=== PATIENT | male | born 1980 | race Caucasian/White ===

== ENCOUNTER 2017-07-21 21:57 | Emergency (ER) | payer OTHER, MEDICAID ==
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
--- NOTE | 2017-07-22 08:01 | CT ---
CT lumbar spine Technique: Multiple axial sections were obtained from above the T11-T12 disc through the majority of the sacrum. Reconstructed sagittal and coronal images were reviewed. Findings: Vertebral body heights and disc spaces are maintained. Vertebral bodies and posterior arches are intact with no fracture being seen. No bony central canal stenosis or bony neural foraminal stenosis is seen. No abnormal subluxation is seen. Impression: 1. Nothing acute is seen on CT study of the lumbar spine Diagnostic code #1 Agree with preliminary report issued by [facility] ([facility] preliminary report dictated on 07/22/17, 12:46 AM Central Time)
== END 2017-07-22 00:08 | disposition home or self-care (01) ==
LOC: JD.ED 21:57
DX: S39.012A Strain of muscle, fascia and tendon of lower back, initial encounter (principal); V63.5XXA Driver of heavy transport vehicle injured in collision with car, pick-up truck or van in traffic accident, initial encounter; Y92.411 Interstate highway as the place of occurrence of the external cause; Z98.890 Other specified postprocedural states; Z88.2 Allergy status to sulfonamides
CPT/HCPCS: 72131; 72131-26; 99283; 99284-25

== ENCOUNTER 2018-10-16 22:56 | Emergency (ER) | payer OTHER, MEDICAID ==
[2018-10-16] MEDS ORDERED: Metoclopramide 10 MG/2 ML SDV IVPUSH ONE (23:05)
[2018-10-16] MEDS ORDERED: HYDROmorphone 1 MG/ML Syringe IVPUSH ONE (23:05)
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
[2018-10-16] MEDS ORDERED: Iohexol 350 MG/ML 75 ML Bottle IVPUSH ONE (23:13)
[2018-10-16] MEDS ORDERED: Sodium Chloride 0.9% 1,000 ML IV SCH (23:15)
[2018-10-17] MEDS ORDERED: HYDROmorphone 1 MG/ML Syringe IVPUSH ONE ×2 (00:20→01:44)
[2018-10-17] MEDS ORDERED: Ondansetron 4 MG/2 ML SDV IVPUSH ONE (01:44)
--- NOTE | 2018-10-19 07:28 | CT ---
Head CT Technique: Multiple axial sections through the brain were obtained. Intravenous contrast was not utilized. Comparison: No prior intracranial imaging. Findings: Ventricles along with basal cisterns and sulci over the convexities are within normal limits for the patient's age. No abnormal parenchymal densities are seen. No evidence of intracranial hemorrhage. No midline shift or mass effect is seen. Bone window settings were reviewed which show no acute calvarial abnormality. Visualized sinuses show a normal mucosal thickening in the maxillary sinuses which is incidental. Impression: 1. Minimal mucosal thickening within the maxillary sinuses which is incidental. 2. No acute intracranial abnormality is identified. Diagnostic code #2 I agree with preliminary report from [facility], finalized on 10/17/18, 12:54 AM Central Time
--- NOTE | 2018-10-19 07:28 | CT ---
CT lumbar spine Technique: Multiple axial sections were obtained through the lumbar spine. Reconstructed coronal and sagittal images were reviewed. Findings: Vertebral body heights and disc spaces are maintained. Vertebral bodies and posterior arches are intact. No fracture is seen within the lumbar spine. No bony central or bony neural foraminal stenosis. Fractures are noted within the thoracic spine which will be described on thoracic spine study. Impression: 1. Thoracic spine fractures described on thoracic spine CT exam. 2. Nothing acute is seen on CT study of the lumbar spine. Diagnostic code #1 I agree with preliminary report from [facility], finalized on 10/17/18, 12:51 AM Central Time
--- NOTE | 2018-10-19 07:28 | CR ---
Right ankle: Four views of the right ankle were obtained. Comparison: No prior ankle exam. Ankle mortise is symmetric. Previous orthopedic intramedullary bushra defect is noted within the distal tibia. No acute fracture, dislocation or other bony abnormality is seen. Impression: 1. Old removed intramedullary bushra defect within the distal tibia. 2. Nothing acute is identified on right ankle exam. Diagnostic code #2
--- NOTE | 2018-10-19 07:28 | CT ---
CT thoracic spine Technique: Multiple axial sections were obtained through the thoracic spine. Reconstructed coronal and sagittal images were reviewed. Findings: Fracture is noted within the vertebral body of T10. This isolates the anterior and superior corner of the vertebral body. No extension into the posterior vertebral line is seen. Minimal superior endplate concavity is seen. No extension into the posterior elements is seen. Minimal endplate concavities are noted of T11 which likely represent additional vertebral body fractures. No extension into the posterior elements are seen. No abnormal subluxation is seen. No bony central or bony neural foraminal stenosis. Impression: 1. Vertebral body fractures of T10 and T11 without extension into the posterior vertebral line or into the posterior elements. No abnormal subluxation is seen. Diagnostic code #3 I agree with preliminary report from [facility], finalized on 10/17/18, 12:54 AM Central Time
--- NOTE | 2018-10-19 08:04 | CT ---
CT chest Technique: Multiple axial sections were obtained from above the lung apices inferiorly through the lung bases. Intravenous contrast was utilized. Reconstructed coronal and sagittal images were reviewed. Comparison: No prior chest imaging is available. Findings: Mediastinum and hilar regions show no adenopathy or mass. No pericardial thickening is seen. No axillary adenopathy is identified. Lungs show no acute parenchymal change. No pleural effusions are seen. No pneumothorax is identified. Fracture is noted within the vertebral body of T10 which will be described on thoracic spine study. Fracture is identified within the posterior left 11th rib. No additional rib fractures are identified. Impression: 1. Posterior left 11th rib fracture. 2. Fracture within the T10 vertebral body which will be described on CT thoracic spine study. 3. No additional abnormality is appreciated on CT study of the chest. Diagnostic code #3 CT abdomen and pelvis Technique: Multiple axial sections were obtained from above the dome of the diaphragm inferiorly through the pubic symphysis. Intravenous contrast was utilized. No oral contrast has been given. Comparison: No prior abdominal imaging. Findings: Liver shows fatty infiltration without focal abnormality. Spleen appears within normal limits. Adrenal glands show no nodule. Pancreas is normal. Gallbladder contains no calcified gallstones. Kidneys show symmetric contrast enhancement without hydronephrosis or mass. No abnormal calcifications are seen within the kidneys. Aorta shows no aneurysm. No retroperitoneal adenopathy or mesenteric abnormalities are seen. No pelvic mass or adenopathy is seen. No free fluid or inflammatory change is identified. Appendix is not definitely visualized. No bowel dilatation is seen. Delayed images show contrast within the distal ureters and within the bladder. No free fluid or inflammatory change is seen with abdomen or pelvis. Bone window settings were reviewed which show no discrete pelvic fracture or hip fracture. Impression: 1. Nothing acute is appreciated on CT study of the abdomen and pelvis. Diagnostic code #2 I agree with preliminary report from [facility], finalized on 10/17/18, 12:59 AM Central Time
--- NOTE | 2018-10-19 08:04 | CT ---
CT cervical spine Technique: Multiple axial sections were obtained from above C1 inferiorly to the top of T2. Reconstructed sagittal and coronal images were reviewed. Comparison: No prior cervical spine imaging. Findings: Vertebral body heights and disc spaces are maintained. No bony central or bony neural foraminal stenosis is seen. No abnormal subluxation or fracture is identified. Impression: 1. Nothing acute is appreciated on CT study of the cervical spine. Diagnostic code #1 I agree with preliminary report from [facility], finalized on 10/17/18, 12:56 AM Central Time
== END 2018-10-17 02:20 ==
LOC: JD.ED 22:56
DX: S22.32XA Fracture of one rib, left side, initial encounter for closed fracture (principal); S22.078A Other fracture of T9-T10 vertebra, initial encounter for closed fracture; S22.080A Wedge compression fracture of T11-T12 vertebra, initial encounter for closed fracture; S90.01XA Contusion of right ankle, initial encounter; Z79.899 Other long term (current) drug therapy; Z88.2 Allergy status to sulfonamides; V49.40XA Driver injured in collision with unspecified motor vehicles in traffic accident, initial encounter
CPT/HCPCS: 36415; 70450; 71260; 72125; 72128; 72131; 73610; 74177; 80053; 81001; 82150; 83615; 84484; 85007; 85027; 85610; 85730; 86850; 86900; 86901; 93005; 96361; 96374; 96375; 96376; 99285; G0390; G0480; J1170; J2405; J2765; J7040; Q9967; 93010

== ENCOUNTER 2020-01-14 05:08 | Emergency (ER) | payer MEDICAID ==
--- NOTE | 2020-01-14 05:44 | EDM.PDOC ---
ED HPI GENERAL MEDICAL PROBLEM - General Chief Complaint: Chest Pain Stated Complaint: CHEST PAIN Time Seen by Provider: 01/14/20 05:20 Source of Information: Reports: Patient History Limitations: Reports: No Limitations - History of Present Illness INITIAL COMMENTS - FREE TEXT/NARRATIVE: Mr. Mon is a very pleasant 39-year-old gentleman who now presents to the ED stating that he developed upper right anterior chest pain on 01/11/2020. Last evening the pain moved to his upper left chest, then got worse in intensity around midnight, while he was in bed, however, he was able to fall asleep. He then woke around 04:00 due to even worse pain, which now radiated to his left jaw area. He also noticed shooting left hand pain that would come and go. He describes his pain as burning and dull in character, and states that it is a pain, not a discomfort. He has not identified any modifiers. No associated nausea, dyspnea, or diaphoresis, although he does state that he has an internal sense that something is wrong. No prior similar symptoms. The patient states that he took 2 Tylenol yesterday, which did not seem to help. Here in the ED, the patient's initial BP is found to be mildly elevated at 153/98, otherwise, he is hemodynamically stable, afebrile, saturating 100% on room air. Other than his chest pain, the patient denies having a recent fever, chills, sore throat, ear pain, nasal or sinus congestion, cough, dyspnea, palpitations, nausea, vomiting, constipation, diarrhea, abdominal pain, urinary symptoms, recent weight gain or weight loss, recent bloody bowel movements or black bowel movements, recent joint aches, headaches, or rashes. The patient does not have a PCP. His Neurosurgeon is Dr. Brian Mon. Chest Pain Score (Numeric/FACES): 3 - Related Data Allergies Allergy/AdvReac Type Severity Reaction Status Date / Time sulfasalazine Allergy Severe Rash Verified 01/14/20 05:17 [From Azulfidine] Home Meds: Home Meds . [No Known Home Meds] 01/14/20 [History] Past Medical History Gastrointestinal History: Reports: Colon Polyp, GERD (untreated), Inflammatory Bowel Disease (diagnosed with ulcerative colitis in 2004, however, his symptoms resolved by 2016, calling into question the accuracy of the original diagnosis) Musculoskeletal History: Reports: Other (See Below) (Lumbar DDD) Endocrine/Metabolic History: Reports: Obesity/BMI 30+ - Past Surgical History HEENT Surgical History: Reports: Myringotomy w Tube(s) (bilateral, several, as a child), Oral Surgery (wisdom teeth extraction), Tonsillectomy GI Surgical History: Reports: Hernia, Inguinal (left) Neurological Surgical History: Reports: Lumbar Spine (L4-L5 microdiscectomy, ) Musculoskeletal Surgical History: Reports: ORIF (right tib/fib, with subsequent hardware removal) Other Musculoskeletal Surgeries/Procedures:: . Social & Family History - Family History Family Medical History: Noncontributory - Tobacco Use Smoking Status *Q: Never Smoker - Caffeine Use Caffeine Use: Reports: None - Alcohol Use Alcohol Use History: No - Recreational Drug Use Recreational Drug Use: No - Living Situation & Occupation Living situation: Reports: , with Spouse, with Family (5 kids) Occupation: Employed ([employer]) ED ROS GENERAL - Review of Systems Review Of Systems: Comprehensive ROS is negative, except as noted in HPI. ED EXAM, GENERAL - Physical Exam Exam: See Below Exam Limited By: No Limitations General Appearance: Alert, WD/WN, No Apparent Distress Eye Exam: Bilateral Eye: EOMI, Normal Inspection Ears: Normal External Exam, Hearing Grossly Normal Nose: Normal Inspection Throat/Mouth: Normal Inspection, Normal Lips, Normal Voice, No Airway Compromise Head: Atraumatic, Normocephalic Neck: Normal Inspection, Full Range of Motion Respiratory/Chest: No Respiratory Distress, Lungs Clear, Normal Breath Sounds, No Accessory Muscle Use, Other (Reproducible tenderness to palpation of the upper left chest. Pain is also reproduced in the same area when the patient presses his hands together with his arms outstretched in front of his chest.) Cardiovascular: Normal Peripheral Pulses, Regular Rate, Rhythm, No Edema, No Gallop, No JVD, No Murmur, No Rub Peripheral Pulses: 3+: Radial (L), Radial (R) GI/Abdominal: Normal Bowel Sounds, Soft, Non-Tender, No Organomegaly, No Disten tion, No Abnormal Bruit, No Mass (Male) Exam: Deferred Rectal (Males) Exam: Deferred Back Exam: Normal Inspection, Full Range of Motion, NT Extremities: Normal Inspection, Normal Range of Motion, No Pedal Edema, Normal Capillary Refill Neurological: Alert, Oriented, Normal Cognition, No Motor/Sensory Deficits Psychiatric: Normal Affect Skin Exam: Warm, Dry, Intact, Normal Color, No Rash EKG INTERPRETATION EKG Date: 01/14/20 Time: 05:15 Rhythm: NSR Rate (Beats/Min): 87 [place]: Normal P-Wave: Enlarged (LAE) QRS: Normal ST-T: Normal QT: Normal Comparison: No Change (10/16/2018) Course - Vital Signs Last Recorded V/S: Last Vital Signs Temp 35.8 C L 01/14/20 05:13 Pulse 84 01/14/20 06:46 Resp 16 01/14/20 06:46 BP 158/72 H 01/14/20 06:46 Pulse Ox 98 01/14/20 06:46 - Orders/Labs/Meds Orders: Active Orders 24 hr Category Date Time Status EKG 12 Lead [EKG Documentation Completion] [RC] URGENT Care 01/14/20 05:38 Active Chest 2V [CR] Stat Exams 01/14/20 05:37 Taken Labs: Laboratory Tests 01/14/20 01/14/20 01/14/20 Range/Units 05:20 05:20 05:20 WBC 8.48 (4.23-9.07) K/mm3 RBC 5.83 (4.63-6.08) M/mm3 Hgb 17.0 (13.7-17.5) gm/dl Hct 50.4 (40.1-51.0) % MCV 86.4 (79.0-92.2) fl MCH 29.2 (25.7-32.2) pg MCHC 33.7 (32.2-35.5) g/dl RDW Std Deviation 43.2 (35.1-43.9) fL Plt Count 252 (163-337) K/mm3 MPV 10.2 (9.4-12.3) fl Neutrophils % (Manual) 69 H (40-60) % Band Neutrophils % 1 (0-10) % Lymphocytes % (Manual) 24 (20-40) % Atypical Lymphs % 0 % Monocytes % (Manual) 5 (2-10) % Eosinophils % (Manual) 1 (0.8-7.0) % Basophils % (Manual) 0 L (0.2-1.2) Platelet Estimate Adequate RBC Morph Comment Normal D-Dimer, Quantitative < 0.19 L (0.19-0.50) mg/L Sodium 141 (136-145) mEq/L Potassium 3.9 (3.5-5.1) mEq/L Chloride 103 (98-107) mEq/L Carbon Dioxide 27 (21-32) mEq/L Anion Gap 14.9 (5-15) BUN 14 (7-18) mg/dL Creatinine 1.3 (0.7-1.3) mg/dL Est Cr Clr Drug Dosing 89.58 mL/min Estimated GFR (MDRD) > 60 (>60) mL/min BUN/Creatinine Ratio 10.8 L (14-18) Glucose 102 (74-106) mg/dL Calcium 9.2 (8.5-10.1) mg/dL Magnesium 2.0 (1.8-2.4) mg/dl Total Bilirubin 0.7 (0.2-1.0) mg/dL AST 29 (15-37) U/L ALT 62 (16-63) U/L Alkaline Phosphatase 67 (46-116) U/L Troponin I < 0.017 (0.00-0.056) ng/mL Total Protein 8.0 (6.4-8.2) g/dl Albumin 4.3 (3.4-5.0) g/dl Globulin 3.7 gm/dL Albumin/Globulin Ratio 1.2 (1-2) - Re-Assessments/Exams Free Text/Narrative Re-Assessment/Exam: 01/14/20 05:38 As above, the patient developed right upper chest pain a few days ago, which migrated to his left upper chest last evening, then grew worse in intensity, with some radiation to his jaw, along with left hand shooting pain. On examination, his pain is reproduced with palpation of his upper left chest, as well as with him pressing his hands together with his arms outstretched in front of his chest, suggesting a musculoskeletal etiology. His ECG, obtained at triage, does not show any ischemic changes. A work-up that includes blood work and a chest x-ray. 01/14/20 06:20 Two-view chest radiograph appears to be grossly normal. The cardiac silhouette is within normal limits. No pulmonary vascular congestion. No pleural effusions. No focal infiltrate. No pneumothorax. Formal read per the Radiologist pending. 01/14/20 06:38 The patient's CBC is unremarkable. His CMP is unremarkable. His magnesium level is within normal limits at 2.0. His troponin is undetectably low. His D-dimer is undetectably low. 01/14/20 06:41 Test results discussed with the patient. As above, today's work-up is entirely unremarkable. Based on his history and physical exam, I suspect that his pain is musculoskeletal in etiology. I offered to start him on and prescribed Norflex, but he declined, preferring to take only ibuprofen. I will discharge him home. Departure - Departure Time of Disposition: 06:42 Disposition: Home, Self-Care 01 Condition: Good Clinical Impression: Musculoskeletal chest pain - Discharge Information *PRESCRIPTION DRUG MONITORING PROGRAM REVIEWED*: Not Applicable *COPY OF PRESCRIPTION DRUG MONITORING REPORT IN PATIENT NATHAN: Not Applicable Referrals: PCP,None [Primary Care Provider] - Bryan Mon MD [Ordering Only Provider] - Forms: ED Department Discharge Additional Instructions: You were seen in the emergency room right chest pain a few days ago, which moved to your upper left chest last evening, then got worse in severity. Work-up in the ER included blood work, a chest x-ray, and an ECG. Your entire work-up was unremarkable. You have not suffered a heart attack. You do not have a blood clot in your lungs. You do not have pneumonia. You do not have a collapsed lung. Based on your history, physical exam, and ER tests, your chest pain is most likely musculoskeletal in etiology. A prescription for muscle relaxant was offered, but declined. We recommend that you take [id number] ibuprofen, 3 tablets (600 mg) up to every 8 hours, with food, as needed for discomfort. If any other problems, please do not hesitate to return to the ER. Sepsis Event Note (ED) - Evaluation Sepsis Screening Result: No Definite Risk - Focused Exam Vital Signs: Vital Signs Temp Pulse Resp BP Pulse Ox 01/14/20 06:46 84 16 158/72 H 98 01/14/20 05:13 35.8 C L 90 20 153/98 H 100 - My Orders Last 24 Hours: My Active Orders 01/14/20 05:37 Chest 2V [CR] Stat 01/14/20 05:38 EKG 12 Lead [EKG Documentation Completion] [RC] URGENT - Assessment/Plan Last 24 Hours: My Active Orders 01/14/20 05:37 Chest 2V [CR] Stat 01/14/20 05:38 EKG 12 Lead [EKG Documentation Completion] [RC] URGENT
--- NOTE | 2020-01-17 13:42 | CR ---
Chest: 2 views of the chest were obtained. Comparison: No prior chest x-ray is available, prior chest CT of 10/16/18 is available. Findings: Heart size and mediastinum are within normal limits. Lungs are clear with no acute parenchymal change. Bony structures are unremarkable. Minimal scoliosis and degenerative change is noted within the spine. Impression: 1. Nothing acute is appreciated on 2 view chest x-ray. Diagnostic code #1 This report was dictated in MDT
== END 2020-01-14 06:52 | disposition home or self-care (01) ==
LOC: JD.ED 05:08
DX: R07.89 Other chest pain (principal); E66.9 Obesity, unspecified; Z88.2 Allergy status to sulfonamides; Z68.39 Body mass index [BMI] 39.0-39.9, adult
CPT/HCPCS: 36415; 71046; 71046-26; 80053; 83735; 84484; 85007; 85027; 85379; 93005; 93010; 99283; 99285-25

== ENCOUNTER 2024-06-28 23:44 | Emergency (ER) | payer MEDICAID ==
[2024-06-29] MEDS ORDERED: Naloxone 0.4 MG/ML SDV IVPUSH PRN (00:09)
[2024-06-29] MEDS: HYDROmorphone 1 MG/ML Syringe IM ONE (00:17)
[2024-06-29] MEDS: Ondansetron 4 MG Tab.DIS PO ONE (00:17)
[2024-06-29] MEDS: oxyCODONE 5 MG Tab PO ONE (01:18)
== END 2024-06-29 01:21 | disposition home or self-care (01) ==
LOC: JD.ED 23:44
DX: G89.18 Other acute postprocedural pain (principal); M25.562 Pain in left knee; M70.962 Unspecified soft tissue disorder related to use, overuse and pressure, left lower leg; E66.9 Obesity, unspecified; Z88.2 Allergy status to sulfonamides; Z68.45 Body mass index [BMI] 70 or greater, adult
CPT/HCPCS: 96372; 99283; A9270; J1171